=== PATIENT | female | born 1945 | race Caucasian/White ===

== ENCOUNTER 2017-12-01 10:35 | Day surgery (SDC) | payer MEDICARE ==
[2017-11-30 12:50] VITALS: BMI 24.7
[2017-12-01] MEDS ORDERED: Oxymetazoline HCl 0.05% ( 15 ML ) ONE ×2 (11:56→13:09)
[2017-12-01 12:18] LABS: Hemoglobin 12.9 g/dL (12.0-16.0)
[2017-12-01 12:37] LABS: Anion Gap 11 mmol/L (10-20); BUN (Urea Nitrogen) 15 mg/dL (9.8-20.1); Calc. Creatinine Clearance 73 mL/min (70-130); Carbon Dioxide 27 mmol/L (23-31); Chloride 106 mmol/L (98-107); Estimated GFR-MDRD 83; Glucose 98 mg/dL (83-110); Potassium 4.1 mmol/L (3.5-5.1); Sodium 140 mmol/L (136-145)
[2017-12-01] MEDS ORDERED: Ondansetron HCl/PF 4 MG/2 ML Vial ONE ×2 (12:41→13:00)
[2017-12-01] MEDS ORDERED: Famotidine/PF 20 mg/2ml Vial ONE (12:41)
[2017-12-01] MEDS ORDERED: Fentanyl 250 MCG/5 ML VIAL ONE (12:41)
[2017-12-01] MEDS ORDERED: Fentanyl 100 MCG/2 ML VIAL ONE ×2 (12:41→13:28)
[2017-12-01] MEDS ORDERED: Dexamethasone 20 MG/5 ML VIAL ONE (13:00)
[2017-12-01] MEDS ORDERED: PROPOFOL 200 MG/20 ML VIAL ONE (13:00)
[2017-12-01] MEDS ORDERED: Esmolol 100 MG/10 ML VIAL ONE (13:00)
[2017-12-01] MEDS ORDERED: Succinylcholine Chloride 20 MG/ML 10 ml SYRINGE FS ONE (13:00)
[2017-12-01] MEDS ORDERED: Lidocaine 1% PF 5 ML VIAL ONE (13:00)
[2017-12-01] MEDS ORDERED: Bacitracin Zinc Ointment 30 gm TUBE ONE (13:09)
[2017-12-01] MEDS ORDERED: Lidocaine 1% w/Epinephrine 1:200K 30 ML VIAL ONE (13:09)
[2017-12-01] MEDS ORDERED: Ciprofloxacin 0.2% Otic ONE (13:10)
--- NOTE | 2017-12-01 14:30 | OP ---
PREOPERATIVE DIAGNOSES: Chronic sinusitis, antrochoanal polyp, allergic fungal sinusitis. POSTOPERATIVE DIAGNOSES: Chronic sinusitis, antrochoanal polyp, allergic fungal sinusitis. PROCEDURES PERFORMED: Left nasal endoscopy with removal of antrochoanal polyp, left maxillary antros luz marina with removal of tissue, left total ethmoidectomy, left frontal sinusotomy, left sphenoidotomy. FINDINGS: The patient had diffuse allergic fungal sinusitis and related polyps throughout all sinuse s. There was hyperostotic bone and purulence in the frontal sinus. PROCEDURE IN DETAIL: After consent was obtained, the patient was identified, brought to the operatin g room, and placed on the operating room table in the supine position. Consent was obtained, notifyi ng the patient of the possibility of additional infections, bleeding, brain injury, and eye/orbital i njury. The patient was placed on the operating room table, and general endotracheal anesthesia and intravenous access was obtained. The patient was then positioned, prepped and draped for endoscopic sinus surgery. Nasal preparation included trimming nasal vestibular hairs and spraying in topical Af rin. We then placed Afrin topical solution on nasal pledgets and strategically located them intranas ally. The perinasal mucosa was injected with 1% lidocaine with 1:100,000 epinephrine in the submucop erichondrial plane of the septum, lateral nasal wall, and anterior to the uncinate. The patient was then prepped and draped in a sterile fashion and positioned for endoscopic sinus surgery. With the 0-degree endoscope, the patient underwent systematic nasal endoscopy. There were no suspici ous internasal masses or lesions identified. We then focused our attention to the osteomeatal comple x region under the middle turbinate. The uncinate was then identified and the extent of the uncinate was appreciated by out-fracturing the uncinate with the ball-tip probe. We then used the sickle blade to disarticulate the uncinate from the lateral nasal wall. This was then removed with straight biting and upbiting punches with the rem aining shrouds of mucosa and bony septum removed with the micro-debrider. The natural os of the maxi llary sinus was then identified and enlarged with the maxillary punches and back biting forceps. The anterior face of the ethmoid bulla was entered and with the micro-debrider, dissection continued posteriorly to the ground lamella. The limits of dissection included the insertion of the middle tur binate, medial orbital wall, and base of skull. We similarly identified the frontal recess and remov ed shrouds of bone and debris in that region to obtain patency into the agger nasi region and frontal recess. We then entered the ground lamella and its anteroinferior aspect and proceeded posteriorly, opening the posterior ethmoid air-cell system. Again, the limits of dissection included the base of skull and medial orbital wall. The anterior face of the sphenoid was identified and entered in its extreme anteroinferior aspect. A sphenoid punch was then used to enlarge the sphenoidotomy and no injury to the optic nerve or regulatory affairs intern al carotid artery occurred. At this point, we then turned our attention to the contralateral side and proceeded with endoscopic s inus surgery. At the completion of the case, Rice keel splints were placed in the ethmoid cavities after the ethmoi dectomy. There were no complications. The patient tolerated the procedure well and was discharged t o the recovery room in stable condition prior to return to the preoperative Day Stay with [facility]. Prescriptions for pain medication and antibiotics were provided. The patient received intramuscular Depo-Medrol during the case.
[2017-12-01] MEDS ORDERED: HYDROmorphone 0.5 MG/0.5 ML SYRINGE ONE (15:36)
[2017-12-01] MEDS ORDERED: Hydrocodone-Acetamin 15 ML UDCUP ONE ×2 (15:36→15:37)
--- NOTE | 2017-12-01 16:41 | EKG ---
Test Reason : PREOP Blood Pressure : / mmHG Vent. Rate : 067 BPM Atrial Rate : 067 BPM P-R Int : 168 ms QRS Dur : 086 ms QT Int : 410 ms P-R-T Axes : 007 030 -28 degrees QTc Int : 433 ms Normal sinus rhythm Abnormal ECG No previous ECGs available Confirmed by GERARDO VALERIO ([id number]) on 12/01/2017 4:40:31 PM Referred By: SHAUN Confirmed By:GERARDO VALERIO
== END 2017-12-01 16:00 | disposition home or self-care (01) ==
LOC: SDC 10:35
PROVIDERS: ATTEND Specialist
PROC: 09TV8ZZ Resection of Left Ethmoid Sinus, Via Natural or Artificial Opening Endoscopic (ICD-10-PCS; principal; 2017-12-01)
PROC: 09TU8ZZ Resection of Right Ethmoid Sinus, Via Natural or Artificial Opening Endoscopic (ICD-10-PCS; 2017-12-01)
PROC: 09BR8ZZ Excision of Left Maxillary Sinus, Via Natural or Artificial Opening Endoscopic (ICD-10-PCS; 2017-12-01)
PROC: 09BQ8ZZ Excision of Right Maxillary Sinus, Via Natural or Artificial Opening Endoscopic (ICD-10-PCS; 2017-12-01)
PROC: 099T8ZZ Drainage of Left Frontal Sinus, Via Natural or Artificial Opening Endoscopic (ICD-10-PCS; 2017-12-01)
PROC: 099W8ZZ Drainage of Right Sphenoid Sinus, Via Natural or Artificial Opening Endoscopic (ICD-10-PCS; 2017-12-01)
PROC: 099X8ZZ Drainage of Left Sphenoid Sinus, Via Natural or Artificial Opening Endoscopic (ICD-10-PCS; 2017-12-01)
PROC: 099S8ZZ Drainage of Right Frontal Sinus, Via Natural or Artificial Opening Endoscopic (ICD-10-PCS; 2017-12-01)
DX: J32.4 Chronic pansinusitis (principal); J33.0 Polyp of nasal cavity; J34.3 Hypertrophy of nasal turbinates; J30.89 Other allergic rhinitis; H65.91 Unspecified nonsuppurative otitis media, right ear; I10 Essential (primary) hypertension; E78.5 Hyperlipidemia, unspecified; G47.30 Sleep apnea, unspecified; M81.0 Age-related osteoporosis without current pathological fracture; Z79.810 Long term (current) use of selective estrogen receptor modulators (SERMs); Z79.82 Long term (current) use of aspirin; Z79.899 Other long term (current) drug therapy
CPT/HCPCS: 36415; 80048; 85014; 85018; 93005; 93010; J0131; J1100; J1170; J2001; J2405; J2704; J3010; S0028